=== PATIENT | female | born 1960 | race Caucasian/White ===

== ENCOUNTER 2023-09-27 22:35 | Inpatient (IN) | payer BC ==
[~2023-09-27 22:35] MED LIST: IV FLUID CONTINUATION 1,000 ML IV ONE
[2023-09-27] MEDS ORDERED: HEPARIN SOD,PORK IN 0.45% NACL 25,000 UNIT in 0.45% NACL 1 250ML.BAG IV SCH (23:00)
[2023-09-27] MEDS ORDERED: HEPARIN SODIUM 1,000 UN/ML (10ML VL) IV PRN (23:00)
[2023-09-27] MEDS ORDERED: NITROGLYCERIN-D5W PMX 50 MG in DEXTROSE/WATER 1 250ML.BAG IV ONE (23:01)
--- NOTE | 2023-09-27 23:06 | ED ---
General Adult HPI - General Chief complaint: Chest Pain Stated complaint: Chest pain Time Seen by Provider: 09/27/23 22:40 Source: patient, EMS Mode of arrival: EMS Limitations: no limitations - History of Present Illness Initial comments: Dictation was produced using [employer] dictation software. please excuse any grammatical, word or spelling errors. Chief Complaint: 62-year-old female transferred from [place] emergency department to our emergency department for ACS History of Present Illness: Patient is a 62-year-old female she presents to the emergency department via transfer from [facility] department for acute coronary syndrome. She initially presented to outside emergency department for 2-3 days of chest pressure. She states that it's a pressure-like sensation that radiates across her bilateral shoulders. She had EKG performed were ER physician there felt like her EKG did not meet STEMI criteria. She did have a troponin elevated at 1.5. She started on nitro glycerin given aspirin and heparin. States that her symptoms are significantly improved since being in our emergency department. Patient has any cardiac history. Denies any history of medical problems. She does smoke. The ROS documented in this emergency department record has been reviewed and confirmed by me. Those systems with pertinent positive or negative responses have been documented in the HPI. All other systems are other negative and/or noncontributory. - Related Data Allergies Allergy/AdvReac Type Severity Reaction Status Date / Time bee venom protein (honey bee) Allergy Anaphylaxis Verified 09/27/23 22:42 Review of Systems ROS Statement: Those systems with pertinent positive or pertinent negative responses have been documented in the HPI. ROS Other: All systems not noted in ROS Statement are negative. Past Medical History Past Medical History: No Reported History Past Surgical History: No Surgical Hx Reported Past Psychological History: Anxiety, Depression Smoking Status: Current every day smoker Past Alcohol Use History: None Reported Past Drug Use History: Marijuana General Exam - General Exam Comments Initial Comments: PHYSICAL EXAM: General Impression: Alert and oriented x3, not in acute distress HEENT: Normocephalic atraumatic, extra-ocular movements intact, pupils equal and reactive to light bilaterally, mucous membranes moist. Cardiovascular: Heart regular rate and rhythm Chest: Able to complete full sentences, no retractions, no tachypnea Abdomen: abdomen soft, non-tender, non-distended, no organomegaly Musculoskeletal: Pulses present and equal in all extremities, no peripheral edema Motor: no focal deficits noted Neurological: CN II-XII grossly intact, no focal motor or sensory deficits noted Skin: Intact with no visualized rashes Psych: Normal affect and mood Limitations: no limitations Course Vital Signs 09/27/23 09/27/23 09/27/23 22:37 23:00 23:15 Temperature 98.5 F Pulse Rate 54 L 60 66 Respiratory 18 20 20 Rate Blood Pressure 116/75 138/61 146/91 O2 Sat by Pulse 98 98 98 Oximetry 09/27/23 23:30 Temperature Pulse Rate 76 Respiratory 18 Rate Blood Pressure 138/87 O2 Sat by Pulse 96 Oximetry - Reevaluation(s) Reevaluation #1: 09/27/23 23:03 Immediately after EKG was reviewed by myself at 2255 PM there was concern for STEMI. EKGs performed here in emergency department or compared to EKGs performed at outside ER from 6:25 PM showing no dynamic changes however. Case was immediately discussed with cardiology Dr. Walter at 2256. He requested that he reviewed the EKG before any further recommendations are made. Reevaluation #2: 09/27/23 23:11 . I spoke with cardiology on-call Dr. Walter at 11:08 PM. He states that he reviewed the EKG and was suspicious. Discussed with cardiology that patient is not having active chest pain. He requested that code STEMI be paged. EKG Findings - EKG Comments: EKG Findings:: My EKG interpretation: Ventricular rate 57, sinus bradycardia,. 157, QRS 79, QTC 41. No IA prolongation, no QTC prolongation, ST elevations that are very subtle and leads 2, 3 aVF and lateral septal precordial leads with depressions in anterior precordial leads. EKG is concerning for active ischemia versus infarction Medical Decision Making - Medical Decision Making Was pt. sent in by a medical professional or institution (, PA, MICROBIOLOGY LAB TECHNICIAN, urgent care, hospital, or detention...) When possible be specific @ -Outside emergency department Did you speak to anyone other than the patient for history (EMS, parent, family, police, friend...)? What history was obtained from this source @ -EMS Did you review nursing and triage notes (agree or disagree)? Why? @ -I reviewed and agree with nursing and triage notes Were old charts reviewed (outside hosp., previous admission, EMS record, old EKG, old radiological studies, urgent care reports/EKG's, detention records)? Report findings @ -outside hosopital ER charts are reviewed as discussed Above Differential Diagnosis (chest pain, altered mental status, abdominal pain women, abdominal pain men, vaginal bleeding, musculoskeletal, weakness, fever, dyspnea, syncope, headache, dizziness, GI bleed, back pain, seizure, CVA, palpatations, mental health)? @ -Differential Chest Pain: Stable Angina, Unstable Angina, STEMI, NSTEMI Aortic Dissection, Pneumothorax, Musculoskeletal, Esophageal Spasm GERD, Cholecystitis, Pancreatitis, Zoster, this is not meant to be an all-inclusive list. EKG interpreted by me (3pts min.). @ -See above X-rays interpreted by me (1pt min.). @ -None done CT interpreted by me (1pt min.). @ -None done U/S interpreted by me (1pt. min.). @ -None done What testing was considered but not performed or refused? (CT, X-rays, U/S, labs)? Why? @ -None What meds were considered but not given or refused? Why? @ -None Did you discuss the management of the patient with other professionals (professionals i.e. , PA, MICROBIOLOGY LAB TECHNICIAN, lab, RT, psych nurse, social professionals, mine safety director, teacher, probation and parole officer, bilingual case manager)? Give summary @ -See above Was smoking cessation discussed for >3mins.? @ -No Was critical care preformed (if so, how long)? @ -33 minutes Were there social determinants of health that impacted care today? How? (Homelessness, low income, unemployed, alcoholism, drug addiction, transportation, low edu. Level, literacy, decrease access to med. care, [facility], rehab)? @ -No Was there de-escalation of care discussed even if they declined (Discuss DNR or withdrawal of care, Hospice)? DNR status @ -No What co-morbidities impacted this encounter? (DM, HTN, Smoking, COPD, CAD, Cancer, CVA, ARF, Chemo, Hep., AIDS, mental health diagnosis, sleep apnea, morbid obesity)? @ -None Was patient admitted / discharged? Hospital course, mention meds given and route, prescriptions, significant lab abnormalities, going to OR and other pertinent info. @ -62-year-old female presents to the emergency department for chest pain. She was seen and evaluated initially at outside emergency Department. EKG was performed here showing EKG findings concerning for STEMI. Case is discussed with cardiology. Code STEMI page. Patient disposition to analytical laboratory technician Undiagnosed new problem with uncertain prognosis? @ -No Drug Therapy requiring intensive monitoring for toxicity (Heparin, Nitro, Insulin, Cardizem)? @ -No Were any procedures done? @ -No Diagnosis/symptom? Acute, or Chronic, or Acute on Chronic? Uncomplicated (without systemic symptoms) or Complicated (systemic symptoms)? @ -STEMI Side effects of treatment? @ -No Exacerbation, Progression, or Severe Exacerbation? @ -No Poses a threat to life or bodily function? How? (Chest pain, [place], [place], pneumonia, PE, COPD, DKA, ARF, appy, cholecystitis, CVA, Diverticulitis, Homicidal, Suicidal, threat to staff... and all critical care pts) @ -yes Disposition Clinical Impression: STEMI (ST elevation myocardial infarction) Disposition: ADMITTED IP TO THIS HOSP Condition: Critical Referrals: None,Stated [Primary Care Provider] - 1-2 days Decision Time: 23:41
[2023-09-27] MEDS ORDERED: NALOXONE 0.4 MG/ML 1 ML VIAL IV PRN (23:37)
[2023-09-27] MEDS ORDERED: LIDOCAINE 1% INJ 10MG/ML (20 ML MDV) ONE (23:44)
[2023-09-27] MEDS ORDERED: VERAPAMIL 2.5 MG/ML 2 ML AMP ONE (23:44)
[2023-09-27 23:46] LABS: Basophils # (A) 0.1 k/uL (0-0.2); Basophils % (A) 1 %; Eosinophils # (A) 0.2 k/uL (0-0.7); Eosinophils % (A) 1 %; HCT 49.2 % (34.0-46.0); HGB 16.7 gm/dL (11.4-16.0); Lymphocytes # (A) 3.9 k/uL (1.0-4.8); Lymphocytes % (A) 26 %; MCH 31.5 pg (25.0-35.0); MCV 92.9 fL (80.0-100.0); Mean Platelet Volume 9.7; Monocytes # (A) 0.7 k/uL (0-1.0); Monocytes % (A) 4 %; Neutrophils # (A) 10.3 k/uL (1.3-7.7); Neutrophils % (A) 67 %; Platelet Count 283 k/uL (150-450); RDW 13.1 % (11.5-15.5); WBC 15.4 k/uL (3.8-10.6)
--- NOTE | 2023-09-27 23:49 | P.CRDCN ---
History of Present Illness Consult date: 09/27/23 History of present illness: HISTORY OF PRESENTING ILLNESS 62-year-old female with no significant past medical history. She does not take any medications previously. She has not seen any physicians in recent past. She is a smoker and smokes 15 cigarettes every day. She also smokes marijuana. Reports occasional alcohol use. She also reports strong family history of coronary artery disease with father having MT in 60s. Patient has been having on and off substernal chest heaviness and reduction in excess capacity for last 3-4 days. This morning patient woke up not feeling very good and she has been having substernal chest heaviness throughout the monitoring which was on and off but it got significantly worse by the evening due to which she went to [facility] at 6 PM. Her ECG at that time showed some ST changes which are diagnostic for ischemia. She also had mild elevation of troponin approximately measuring at 1.4. Cardiology was notified at 11:20 PM, that patient has been transferred from [facility] to [facility] ER. At this time patient is on IV heparin drip and nitro drip. She has been complaining of 4 out of 10 chest heaviness even be 1 on nitro drip but she is hemodynamically stable. An EKG was performed which showed sinus rhythm with [address] elevation in lead 2 and 3 aVF V5 V6. There is also Q waves seen in 2, 3 and aVF. There are also prominent R waves in lead V1 suggestive of posterior MT. Overall ECG interpretation is in line with late presenting inferior MT with posterolateral extension. Bedside echocardiogram was performed which showed inferior, inferolateral hy pokinesia with an EF of 35-40%. There was no obvious mitral regurgitation on color Doppler. There was no pericardial effusion, some epicardial fat. REVIEW OF SYSTEMS 14 point review of system is negative except what is mentioned above in HPI. PHYSICAL EXAMINATION Vital signs reviewed. Head: Normocephalic. Eyes: Sclerae nonicteric. Neck: Brisk carotid upstroke, no jugular venous distention. Lungs: Clear to auscultation. Heart: Regular rate and rhythm, S1-S2, no S3, no murmur or rub. Abdomen: Soft nontender, positive bowel sounds no organomegaly. Extremities: No edema, intact distal pulses. Neuro: Alert, oritented, no focal deficits ASSESSMENT Late presenting inferior MT ACS with ongoing active chest pains while on IV nitro drip Tobacco smoker quadrant pack per day Marijuana smoker Family h/o of CAD PLAN Plan for cardiac catheterization. The procedure steps the risks and benefits were extended the patient patient agrees to proceed with cardiac catheterization. Obtain echocardiogram Check lipid panel, HbA1c Past Medical History Past Medical History: No Reported History Past Surgical History: No Surgical Hx Reported Past Psychological History: Anxiety, Depression Smoking Status: Current every day smoker Past Alcohol Use History: None Reported Past Drug Use History: Marijuana Medications and Allergies Allergies Allergy/AdvReac Type Severity Reaction Status Date / Time bee venom protein (honey bee) Allergy Anaphylaxis Verified 09/27/23 22:42 Physical Exam Vitals: Vital Signs Temp Pulse Resp BP Pulse Ox 09/27/23 23:40 69 18 143/95 96 09/27/23 23:30 76 18 138/87 96 09/27/23 23:15 66 20 146/91 98 09/27/23 23:00 60 20 138/61 98 09/27/23 22:37 98.5 F 54 L 18 116/75 98 Intake and Output 09/27/23 09/27/23 09/28/23 14:59 22:59 06:59 Other: Weight 95.254 kg Results Current Medications Generic Name Dose Route Start Last Admin Trade Name Freq PRN Reason Stop Dose Admin Heparin Sodium (Porcine) 0 unit 09/27/23 23:00 Heparin Sodium 1,000 Un/Ml (10ml Vl) IV PER PROTOCOL PRN Low PTT Protocol Heparin Sodium/Sodium Chloride 250 mls @ 10.002 mls/hr 09/27/23 23:00 09/27/23 23:10 25,000 unit/ Sodium Chloride IV 10.5 units/kg/hr .Q24H ANISH 10.002 mls/hr Administration Protocol 10.5 UNITS/KG/HR Nitroglycerin/Dextrose 50 mg/ 250 mls @ 1.5 mls/hr 09/27/23 23:01 09/27/23 23:13 IV Solution IV 09/28/23 23:00 5 mcg/min .Q24H ONE 1.5 mls/hr Administration Protocol 5 MCG/MIN Naloxone HCl 0.2 mg 09/27/23 23:37 Naloxone 0.4 Mg/Ml 1 Ml Vial IV Q2M PRN Opioid Reversal Intake and Output 09/27/23 09/27/23 09/28/23 14:59 22:59 06:59 Other: Weight 95.254 kg Patient Weight 09/28/23 06:59 Weight 95.254 kg
[2023-09-27] MEDS ORDERED: fentaNYL (PF) 50 MCG/ML 2 ML AMP ONE (23:54)
[2023-09-27] MEDS ORDERED: LIDOCAINE 1% INJ 10MG/ML (20 ML MDV) SQ ONE (23:57)
[2023-09-28] LABS: ALT 37 U/L (4-34); African American GFR (CKD) >90 (>60 ml/min/1.73 sqM); Anion Gap 9 mmol/L; Blood Urea Nitrogen 12 mg/dL (7-17); Calcium 9.4 mg/dL (8.4-10.2); Carbon Dioxide 21 mmol/L (22-30); Chloride 107 mmol/L (98-107); Glucose 113 mg/dL (74-99); Non-African American GFR(CKD) 84 (>60 ml/min/1.73 sqM); Sodium 137 mmol/L (137-145); Total Bilirubin 0.9 mg/dL (0.2-1.3)
[2023-09-28] MEDS ORDERED: VERAPAMIL SYRINGE (5 MG/10 ML) INTRAARTER ONE (00:01)
[2023-09-28] MEDS ORDERED: MIDAZOLAM 2 MG/2 ML VIAL IVP ONE (00:02)
[2023-09-28] MEDS ORDERED: fentaNYL (PF) 50 MCG/1 ML VIAL IVP ONE (00:02)
[2023-09-28 00:06] LABS: AST 116 U/L (14-36); Albumin 4.2 g/dL (3.5-5.0); Alkaline Phosphatase 102 U/L (38-126); Potassium 4.9 mmol/L (3.5-5.1)
[2023-09-28] MEDS: HEPARIN SODIUM 1,000 UN/ML (10ML VL) IV ONE ×2 (00:06→01:08)
[2023-09-28 00:07] LABS: Partial Thromboplastin Time 68.2 sec (22.0-30.0); Prothrombin Time 10.7 sec (10.0-12.5)
[2023-09-28] MEDS ORDERED: PRASUGREL 10 MG TAB PO ONE (00:25)
[2023-09-28] MEDS ORDERED: IOPAMIDOL-370 100ML BTL INJ ONE ×2 (00:29→01:08)
--- NOTE | 2023-09-28 00:30 | P.CARDCATH ---
Date of Procedure: 09/28/23 Description of Procedure: DIAGNOSTIC CORONARY ANGIOGRAPHY and LEFT HEART CATH REPORT PROCEDURES PERFORMED: Left heart catheterization Selective coronary angiography Moderate conscious sedation and mins Right radial access INDICATION: Late presenting inferoposterior PR 62-year-old female presented to [facility] at 6 PM with substernal chest pain at that time showed elevated troponin. Due to ongoing chest and she was transferred to [facility]. Her ECG showed Q waves in inferior leads and evolving ST changes with [address] elevations in II III aVF and V5 V6 with prominent R wave in V1 suggestive of posterior extension of PR. The time of evaluation patient was an IV nitro drip complaining of 4/10 chest pressure. But her echocardiogram showed mid to distal anterolateral, whole inferolateral and inferior wall hypokinesia. EF 40% CONSENT: I have discussed the risks, benefits and alternative therapies for the above-mentioned procedure, sedation/analgesia and necessary blood product administration (if indicated, as they pertain to this patient). The patient has indicated understanding and acceptance of the risks and procedures discussed. Conscious Sedation: Patient's ECG, heart rate, blood pressure, pulse oximetry was monitored throughout the duration of procedure under my direct supervision. 1 mg Versed and 25 mg Fentanyl were used for induction of moderate conscious sedation. Total duration of moderate concious sedation 10 minutes. Start time 2357. End time 0007. PROCEDURE: After explaining the risks, benefits and alternatives of the above mentioned procedures in detail to the patient, informed consent was obtained. Patient was taken to the catheterization lab, prepped and draped in usual sterile fashion using universal precuations. Barbow and lior test were performed to confirm adequate perfusion to fingers. Ultrasound was used to identify the radial artery. 1% lidocaine was infiltrated over the right radial artery. A 6-Sami sheath was placed and secured in the right radial artery using modified Seldinger technique. The sheath was flushed and 5 mg verapamil was administered intra-arterially. J tipped wire was advanced under fluoroscopic guidance. Once the wire tip reached aortic root [5000] units of IV heparin was given. Over the wire JL4 diagnostic catheter was advanced. Wire was removed, catheter was flushed and manipulated under fluoroscopy to selectively engaged the left coronary ostium. Left coronary angioplasty was performed in different angiographic projections. This catheter was exchanged for a JR4 diagnostic catheter over the wire. Catheter was manipulated to selectively engage the right coronary ostium under fluoroscopic guidance. Right coronary angiography was performed in different angiographic projections. Catheter was removed over the wire. Radial sheath was flushed. The right radial sheath was removed and a TR band was placed with excellent patent hemostasis was achieved. The patient tolerated the procedure well. Patient was transported back to the post catheterization holding area in stable condition. Angiographic images were reviewed in detail. HEMODYNAMICS: Aortic Pressure: 142/77 mmHg. SELECTIVE CORONARY ARTERIOGRAPHY: LEFT MAIN: The left main is a large caliber vessel which bifurcates into the LAD and circumflex. Left main appears angiographically normal. LEFT ANTERIOR DESCENDING CORONARY ARTERY: LAD is a large caliber vessel. Proximal LAD has 10-20% calcific luminal irregularities. Mid LAD has 30-40% calcific luminal irregularities. Mid LAD gives medium-sized diagonal 2 branch approximately 3 mm vessel. It has 30-40% diffuse disease in the proximal segment. Distal midportion of LAD has 60-70% calcific disease. Distal LAD is a small segment of myocardial bridge. and otherwise appears angiographically normal. LEFT CIRCUMFLEX CORONARY ARTERY: It is nondominant vessel. LCx is a large OM1 branch approximately 4 mm vessel. It has 100% thrombotic occlusion in mid segment with BENSON 0 flow. LCx continues to form a small AV groove vessel which is normal angiographically. RIGHT CORONARY ARTERY: Dominant vessel. The right coronary artery is a large caliber vessel. Proximal RCA has 90-95% percent calcific stenosis with BENSON-3 flow. Mid to distal RCA 30% diffuse luminal irregularities IMPRESSION: 100% thrombotic occlusion of mid OM1 , BENSON 0 flow, culprit vessel based of bedside echo and ECG 90-95% Proximal RCA, BENSON 3 Flow 60-70% distal Mid LAD Mild diffuse disease otherwise PLAN: Plan for PCI to OM Staged PCI of RCA and FFR/IFR assessment of LAD. Thank you for letting [facility] cardiology team to get involved in this patient's care. Please feel free to contact our office in case of any specific questions. Performing Physician Des Walter MD
--- NOTE | 2023-09-28 00:39 | XR ---
EXAM: XR Chest, 1 View CLINICAL HISTORY: ITS.REASON XR Reason: stemi TECHNIQUE: Frontal view of the chest. COMPARISON: No relevant prior studies available. FINDINGS: Lungs: Unremarkable. No consolidation. Pleural space: Unremarkable. No pneumothorax. Heart: Cardiomegaly. Mediastinum: Unremarkable. Normal mediastinal contour. Bones/joints: Unremarkable. No acute fracture. Vasculature: Calcified aorta. IMPRESSION: No acute findings in the chest.
[2023-09-28] MEDS ORDERED: ZOLPIDEM 5 MG TAB PO PRN (00:51)
[2023-09-28] MEDS ORDERED: ATROPINE SULFATE 0.1 MG/ML 10ML SYRINGE IV PRN (00:51)
[2023-09-28] MEDS ORDERED: MAG HYDROX/AL HYDROX/SIMETH 30 ML CUP PO PRN (00:51)
[2023-09-28] MEDS ORDERED: RX INFO: IV CONTRAST WAS GIVEN 1 EACH MISC MISCELLANE PRN (00:51)
[2023-09-28] MEDS ORDERED: NITROGLYCERIN SL TABS 0.4 MG TAB SUBLINGUAL PRN (00:51)
--- NOTE | 2023-09-28 00:56 | P.PCN ---
Date of Procedure: 09/28/23 Operative Findings: PERCUTANEOUS CORONARY INTERVENTION Performing physician Jack Rogers M.D. Procedure Performed: 1. Successful stenting of the OM1 of the LCx using the 0.5 x 23 mm Xience drug- eluting stent with an excellent angiographic results. 2. Adjunctive use of intravascular imaging and aspiration thrombectomy Indication: Acute coronary syndrome Approach: Right radial artery Complications: None Level of Sedation: Moderate with a sedation length of 30 minutes Procedure Discussion: After obtaining an informed consent the patient was brought to the cardiac lab asst. Please refer to diagnosed sick heart catheterization was performed by Dr. Walter. Anticoagulation was initiated using heparin with continuous ACT monitoring. Subsequently I did engage the left main using a CLS 3 guiding catheter. I did wire the first obtuse marginal branch using a run-through wire. Subsequently balloon angioplasty was performed using 3 mm balloon but I could not restore the flow. I did intravascular ultrasound and that showed soft plaque with possible thrombus. Aspiration thrombectomy was performed using the export catheter with the extraction of small red thrombus. Subsequently I did balloon angioplasty again using 3 mm balloon with prolonged inflation and I was able to restore the flow in the OM. Then I did stenting the OM using 3.5 x 23 mm stent which was postdilated using 4 mm noncompliant balloon after intravas cular imaging performed and showed that the mid segment of the stent was not well expanded. Final angiogram was performed and showed good angiographic results was BENSON-3 flow and the procedure was completed was no complication Postprocedure Management: 1. Dual antiplatelet therapy using aspirin and Effient for 12 month 2. Aggressive cholesterol control 3. Is cracked his modification
[2023-09-28] MEDS ORDERED: SODIUM CHLORIDE 0.9% 1,000 ML in EMPTY BAG 1 BAG IV SCH (01:00)
[2023-09-28 01:05] LABS: Glucose,Whole Blood 114 mg/dL (70-110)
[2023-09-28] MEDS ORDERED: ONDANSETRON 4 MG/2 ML VIAL IVP ONE (01:08)
--- NOTE | 2023-09-28 02:05 | P.HPIM ---
History of Present Illness H&P Date: 09/28/23 Patient is a 62-year-old female with a PMH of tobacco abuse and obesity who had initially presented to [facility] with complaints of chest discomfort. Patient reports she has been experiencing intermittent chest tightness for the past 2-3 days, pressure-like in nature, with radiation to bilateral shoulders. Reports the pain became persistent earlier today which prompted her to go to the emergency room. At [facility], the patient's troponin was elevated at 1.50 with a somewhat abnormal EKG. The patient was started on heparin infusion and was transferred for cardiology evaluation. Upon arrival at the emergency room, EKG revealed findings consistent with ST elevation PR for which a code STEMI was activated. Patient was taken to the Ground Products Director where she underwent stenting of the OM1. Patient was also noted to have 60-70% consultation disease of the distal LAD as well as 90- 95% of the proximal RCA. The patient was seen postoperatively in the medical ICU. She reported that her chest pain had resolved completely. She denied any additional complaints. Denied experiencing cough, fever, sore throat, nausea, vomiting. Laboratory evaluation at our facility revealed leukocytosis of 15.4, hemoglobin 16.7, troponin I 9.330, glucose 113, AST 116, and ALT 37. EKG had revealed sinus bradycardia with ST elevations in inferior leads and poor R-wave progre ssion 57 bpm as reviewed by me. ED documentation reviewed and case discussed with ED provider. [] Review of systems: Pertinent positives and negatives as discussed in HPI, a complete review of systems was performed and all other systems are negative. Physical examination: Vital signs reviewed General: non toxic, no distress, appears at stated age, obese Derm: no unusual rashes/lesions, warm Head: atraumatic, normocephalic, symmetric Eyes: EOMI, no lid lag, anicteric sclera, pupils equal round reactive to light ENT: Nose and ears atraumatic Neck: No cervical lymphadenopathy, trachea midline, supple Mouth: no lip lesion, mucus membranes moist Cardiovascular: S1S2 reg, no murmur, positive dorsalis pedis pulse bilateral, no edema Lungs: CTA bilateral, no rhonchi, no rales, no accessory muscle use Abdominal: soft, nontender to palpation, no guarding Ext: muscle strength 5 out of 5 in all 4 extremities grossly, no gross muscle atrophy, no contractures, Neuro: CN II-XI grossly intact, no gross focal neuro deficits Psych: Alert, oriented, appropriate affect Assessment: ST elevation PR status post stenting of OM1 Leukocytosis, suspect secondary to acute stressor with no signs of active infection at this time Transaminitis, unclear etiology Imaging: EKG had revealed sinus bradycardia with ST elevations in inferior leads and poor R-wave progression 57 bpm as reviewed by me. Data Review: Laboratory evaluation at our facility revealed leukocytosis of 15.4, hemoglobin 16.7, troponin I 9.330, glucose 113, AST 116, and ALT 37. Plan: Cardiology recommendations appreciated Continue patient on aspirin and Effient with Lipitor Cardiac monitoring Follow up echocardiogram Follow-up lipid panel and A1c If transaminitis persistent, consider RUQ ultrasound DVT prophylaxis: Lovenox Subq The patient is admitted with an anticipated greater than 2 midnight stay for evaluation of STEMI CODE STATUS: Full Code Discussed with: Patient Anticipated discharge place: Home Past Medical History Past Medical History: No Reported History History of Any Multi-Drug Resistant Organisms: None Reported Past Surgical History: No Surgical Hx Reported Additional Past Surgical History / Comment(s): Right thumb bone spur sx 2008 Past Anesthesia/Blood Transfusion Reactions: No Reported Reaction Past Psychological History: Anxiety, Depression Smoking Status: Current every day smoker Past Alcohol Use History: None Reported Past Drug Use History: Marijuana - Past Family History Father Family Medical History: Cancer Additional Family Medical History / Comment(s): Squamous cell CA Mother Family Medical History: Coronary Artery Disease (CAD) Additional Family Medical History / Comment(s): 4 vessel CABG Medications and Allergies Allergies Allergy/AdvReac Type Severity Reaction Status Date / Time bee venom protein (honey bee) Allergy Anaphylaxis Verified 09/27/23 22:42 Physical Exam Vitals: Vital Signs Temp Pulse Pulse Resp BP BP Pulse Ox 09/28/23 01:17 97.8 F 70 12 113/59 98 09/27/23 23:40 69 18 143/95 96 09/27/23 23:30 76 18 138/87 96 09/27/23 23:15 66 20 146/91 98 09/27/23 23:00 60 20 138/61 98 09/27/23 22:37 98.5 F 54 L 18 116/75 98 Intake and Output 09/27/23 09/27/23 09/28/23 14:59 22:59 06:59 Other: Weight 95.254 kg 95.254 kg Results CBC & Chem 7: 09/28/23 02:12 09/27/23 23:32 Labs: Abnormal Lab Results - Last 24 Hours (Table) 09/27/23 09/27/23 09/27/23 Range/Units 23:32 23:32 23:32 WBC 15.4 H (3.8-10.6) k/uL Hgb 16.7 H (11.4-16.0) gm/dL Hct 49.2 H (34.0-46.0) % Neutrophils # 10.3 H (1.3-7.7) k/uL APTT 68.2 H (22.0-30.0) sec Carbon Dioxide 21 L (22-30) mmol/L Glucose 113 H (74-99) mg/dL POC Glucose (mg/dL) (70-110) mg/dL AST 116 H (14-36) U/L ALT 37 H (4-34) U/L Troponin I (0.000-0.034) ng/mL 09/27/23 09/28/23 Range/Units 23:32 01:03 WBC (3.8-10.6) k/uL Hgb (11.4-16.0) gm/dL Hct (34.0-46.0) % Neutrophils # (1.3-7.7) k/uL APTT (22.0-30.0) sec Carbon Dioxide (22-30) mmol/L Glucose (74-99) mg/dL POC Glucose (mg/dL) 114 H (70-110) mg/dL AST (14-36) U/L ALT (4-34) U/L Troponin I 9.330 H* (0.000-0.034) ng/mL Thrombosis Risk Factor Assmnt - Choose All That Apply Any of the Below Risk Factors Present?: Yes Each Factor Represents 1 point: Acute PR, Age 41-60 years, Minor surgery planned Other Risk Factors: No Other congenital or acquired thrombophilia - If yes, enter type in comment: No Thrombosis Risk Factor Assessment Total Risk Factor Score: 3 Thrombosis Risk Factor Assessment Level: Moderate Risk
[2023-09-28 03:19] LABS: Basophils # (A) 0.1 k/uL (0-0.2); Basophils % (A) 1 %; Eosinophils # (A) 0.1 k/uL (0-0.7); Eosinophils % (A) 1 %; HCT 48.6 % (34.0-46.0); HGB 16.4 gm/dL (11.4-16.0); Lymphocytes % (A) 21 %; MCH 31.6 pg (25.0-35.0); MCHC 33.8 g/dL (31.0-37.0); MCV 93.5 fL (80.0-100.0); Mean Platelet Volume 9.4; Monocytes # (A) 0.7 k/uL (0-1.0); Monocytes % (A) 5 %; Neutrophils # (A) 10.4 k/uL (1.3-7.7); Neutrophils % (A) 72 %; Platelet Count 280 k/uL (150-450); RBC 5.19 m/uL (3.80-5.40); RDW 13.5 % (11.5-15.5); WBC 14.4 k/uL (3.8-10.6)
[2023-09-28] MEDS: METOPROLOL TARTRATE 25 MG TAB PO SCH ×2 (08:31→20:17)
[2023-09-28] MEDS: ASPIRIN 81 MG PO SCH (08:31)
[2023-09-28] MEDS: ENOXAPARIN 40 MG/0.4 ML SYRINGE SQ SCH (08:31)
[2023-09-28] MEDS ORDERED: ALPRAZolam 0.25 MG TAB PO PRN (10:15)
[2023-09-28] MEDS ORDERED: ALPRAZolam 0.5 MG TAB PO PRN (10:15)
[2023-09-28 11:18] VITALS: BMI 33.9
[2023-09-28 11:27] LABS: Chol/HDL Ratio 6.29 Ratio; LDL Cholesterol,Calculated 185.2 mg/dL (0.0-131.0)
--- NOTE | 2023-09-28 12:07 | CA ---
Transthoracic Echo Report Name: Pretty Andujar Age: 62 Gender: F : 1960 Exam Date: 09/28/2023 08:10 Exam Location: [facility] Ht (in): 66 Wt (lb): 210 Ordering Physician: Des Walter MD ([email or web address]) Attending/Referring Phys: Grease Maker Head Duyen Yanez RDCS Procedure CPT: Indications: stemi Cardiac Hx: Technical Quality: Technically difficult study Contrast 1: Definity Total Dose (mL): 2 Contrast 2: Total Dose (mL): MEASUREMENTS (Male / Female) Normal Values 2D ECHO LV Diastolic Diameter PLAX 3.8 cm 4.2 - 5.9 / 3.9 - 5.3 cm LV Systolic Diameter PLAX 2.2 cm IVS Diastolic Thickness 1.4 cm 0.6 - 1.0 / 0.6 - 0.9 cm LVPW Diastolic Thickness 1.4 cm 0.6 - 1.0 / 0.6 - 0.9 cm LV Relative Wall Thickness 0.7 RV Internal Dim ED PLAX 3.5 cm LA Volume 53.0 cm??? 18 - 58 / 22 - 52 cm??? LA Volume Index 24.7 cm???/m??? 16 - 28 cm???/m??? M-MODE Aortic Root Diameter MM 3.0 cm LA Systolic Diameter MM 3.9 cm LA Ao Ratio MM 1.3 AV Cusp Separation MM 2.0 cm DOPPLER AV Peak Velocity 171.1 cm/s AV Peak Gradient 11.7 mmHg AV Mean Velocity 130.7 cm/s AV Mean Gradient 7.4 mmHg AV Velocity Time Integral 35.8 cm LVOT Peak Velocity 115.8 cm/s LVOT Peak Gradient 5.4 mmHg LVOT Velocity Time Integral 26.3 cm MV Area PHT 2.7 cm??? Mitral E Point Velocity 53.1 cm/s Mitral A Point Velocity 80.8 cm/s Mitral E to A Ratio 0.7 MV Deceleration Time 282.3 ms MV E' Velocity 6.7 cm/s Mitral E to MV E' Ratio 7.9 TR Peak Velocity 200.6 cm/s TR Peak Gradient 16.1 mmHg Right Ventricular Systolic Press 21.1 mmHg FINDINGS Left Ventricle Moderately increased left ventricular wall thickness. Left ventricular cavity size normal. Lateral wall hypokinesis. Left ventricular ejection fraction is estimated at 50-55 %. Right Ventricle Mild right ventricular dilatation. Right ventricular systolic pressure within normal limits. Right Atrium Normal right atrial size. Left Atrium Mildly increased left atrial volume. Mitral Valve Structurally normal mitral valve. Mild mitral regurgitation. Aortic Valve Trileaflet aortic valve. No aortic valve stenosis or regurgitation. Tricuspid Valve Structurally normal tricuspid valve. Mild tricuspid regurgitation. Pulmonic Valve Structurally normal pulmonic valve. Pericardium No pericardial effusion.echo free space anterior to the right ventricle likely represents a fat pad. Aorta Normal size aortic root and proximal ascending aorta. CONCLUSIONS 1. Normal left ventricle size with borderline normal left ventricle systolic function with lateral wall hypokinesis 2. Mild mitral and tricuspid regurgitation Previewed by: Dr. Kameron Mims MD (Electronically Signed) Final Date: 28 September 2023 12:05
[2023-09-28] MEDS: ATORVASTATIN 80 MG TAB PO SCH (20:16)
--- NOTE | 2023-09-29 01:14 | PN ---
PROGRESS NOTE SUBJECTIVE: Mrs. Andujar presents with acute ST-elevation MS, last night underwent stenting of circumflex. She still has a significant lesion in the RCA. She is hemodynamically stable, doing well. At the time of my evaluation, she is not in any distress, has been tolerating her medications well. Right radial site is clean and dry. OBJECTIVE: VITALS: Stable. HEART: S1, S2 heard normally. LUNGS: Clear. ABDOMEN: Unremarkable. EXTREMITIES: Lower extremities unremarkable. I am recommending that she can proceed with her right coronary intervention tomorrow. Dr. Rogers will perform the procedure. The patient is fully aware of risks, benefits, options, rationale and wishes to proceed with the procedure. MMODL / IJN: [id number] /
[2023-09-29] MEDS ORDERED: SODIUM CHLORIDE 0.9% 1,000 ML in EMPTY BAG 1 BAG IV SCH ×2 (03:00→10:45)
[2023-09-29 05:21] LABS: Basophils # (A) 0.1 k/uL (0-0.2); Basophils % (A) 1 %; Eosinophils # (A) 0.3 k/uL (0-0.7); Eosinophils % (A) 2 %; HCT 45.7 % (34.0-46.0); HGB 15.9 gm/dL (11.4-16.0); Lymphocytes # (A) 3.9 k/uL (1.0-4.8); Lymphocytes % (A) 35 %; MCH 31.9 pg (25.0-35.0); MCHC 34.8 g/dL (31.0-37.0); MCV 91.9 fL (80.0-100.0); Mean Platelet Volume 9.6; Monocytes # (A) 0.6 k/uL (0-1.0); Monocytes % (A) 5 %; Neutrophils # (A) 6.1 k/uL (1.3-7.7); Neutrophils % (A) 55 %; Platelet Count 261 k/uL (150-450); RBC 4.97 m/uL (3.80-5.40); RDW 13.5 % (11.5-15.5); WBC 11.2 k/uL (3.8-10.6)
[2023-09-29 05:34] LABS: African American GFR (CKD) 78 (>60 ml/min/1.73 sqM); Anion Gap 8 mmol/L; Blood Urea Nitrogen 16 mg/dL (7-17); Calcium 9.2 mg/dL (8.4-10.2); Carbon Dioxide 22 mmol/L (22-30); Chloride 108 mmol/L (98-107); Glucose 101 mg/dL (74-99); Non-African American GFR(CKD) 68 (>60 ml/min/1.73 sqM); Potassium 4.3 mmol/L (3.5-5.1); Sodium 138 mmol/L (137-145)
[2023-09-29] MEDS ORDERED: ASPIRIN 325 MG TAB PO ONE (06:00)
[2023-09-29] MEDS ORDERED: HEPARIN SODIUM,PORCINE (1 ML) 2,500 UNIT in SODIUM CHLORIDE 0.9% 250 ML IRRIGATION PRN (07:00)
[2023-09-29] MEDS ORDERED: HEPARIN SODIUM,PORCINE 10,000 UNIT in SODIUM CHLORIDE 0.9% 1,000 ML IRRIGATION PRN (07:00)
[2023-09-29] MEDS: ASPIRIN 81 MG PO SCH (07:23)
[2023-09-29] MEDS ORDERED: PRASUGREL 10 MG TAB PO SCH (09:00)
[2023-09-29] MEDS: ENOXAPARIN 40 MG/0.4 ML SYRINGE SQ SCH (09:14)
[2023-09-29] MEDS: METOPROLOL TARTRATE 25 MG TAB PO SCH ×2 (09:15→20:03)
[2023-09-29] MEDS ORDERED: VERAPAMIL 2.5 MG/ML 2 ML AMP ONE (09:47)
[2023-09-29] MEDS ORDERED: LIDOCAINE 1% INJ 10MG/ML (20 ML MDV) ONE (09:47)
[2023-09-29] MEDS ORDERED: HEPARIN SODIUM 1,000 UN/ML (10ML VL) ONE (09:47)
[2023-09-29] MEDS ORDERED: IV FLUID CONTINUATION 1,000 ML IV ONE (09:55)
[2023-09-29] MEDS ORDERED: MIDAZOLAM 2 MG/2 ML VIAL IVP ONE (09:56)
[2023-09-29] MEDS ORDERED: LIDOCAINE 1% INJ 10MG/ML (20 ML MDV) SQ ONE (09:58)
[2023-09-29] MEDS ORDERED: VERAPAMIL SYRINGE (5 MG/10 ML) INTRAARTER ONE (09:59)
[2023-09-29] MEDS ORDERED: HEPARIN SODIUM 1,000 UN/ML (10ML VL) IV ONE (10:07)
[2023-09-29] MEDS ORDERED: PRASUGREL 10 MG TAB ONE ×2 (10:25)
[2023-09-29] MEDS ORDERED: PRASUGREL 10 MG TAB PO ONE (10:27)
[2023-09-29] MEDS ORDERED: IOPAMIDOL-370 100ML BTL INJ ONE (10:31)
[2023-09-29] MEDS ORDERED: ZOLPIDEM 5 MG TAB PO PRN (10:33)
[2023-09-29] MEDS ORDERED: NITROGLYCERIN SL TABS 0.4 MG TAB SUBLINGUAL PRN (10:33)
[2023-09-29] MEDS ORDERED: RX INFO: IV CONTRAST WAS GIVEN 1 EACH MISC MISCELLANE PRN (10:33)
[2023-09-29] MEDS ORDERED: MAG HYDROX/AL HYDROX/SIMETH 30 ML CUP PO PRN (10:33)
[2023-09-29] MEDS ORDERED: ATROPINE SULFATE 0.1 MG/ML 10ML SYRINGE IV PRN (10:33)
--- NOTE | 2023-09-29 10:41 | P.PCN ---
Date of Procedure: 09/29/23 Operative Findings: PERCUTANEOUS CORONARY INTERVENTION Performing physician Jack Roegrs M.D. Procedure Performed: 1. Successful stenting of the proximal RCA using 4.5 x 15 mm Xience drug- eluting stent with an excellent angiographic results. 2. Adjunctive use of intravascular imaging 3. Ultrasound guided access of the right radial artery Indication: This is a 62-year-old female patient who presented to the hospital 2 days ago with acute coronary syndrome and underwent a heart catheterization where she was found to have occluded left circumflex and type lesion involving the RCA beach she underwent stenting of the left circumflex and she was brought today to undergo PCI of the RCA Approach: Right radial artery Complications: None Level of Sedation: Moderate with a sedation length of 34 minutes Procedure Discussion: After obtaining an informed consent the patient was brought to the cardiac laborer shipyard. The right radial artery was cannulated using puncture technique under ultrasound guidance a micropuncture wire passed easily then I placed a 6-Swedish sheath at the right radial artery. I gave the patient 2 mg of verapamil intra- arterial. Subsequently anticoagulation was initiated using heparin with continuous ACT monitoring. Then I did engage the RCA using JR4 guiding catheter. Selective right coronary angiogram was performed and showed critical lesion involving the proximal RCA. I did wire the RCA using a run-through wire. After that the mask ultrasound was performed and showed calcified lesion with a diameter around 4.5 mm. After that I did predilatation using 3.5 mm balloon before I deployed a 4.5 x 15 mm stent where the stent was positioned under fluoroscopy guidance and deployed under fluoroscopy guidance. Attempting doing intravascular ultrasound again was only possible to advance the catheter to the midportion of the stent but not the distal portion of the stent. I did postdilated dictation of the stent using 5 mm noncompliant balloon. Attempting advancing the balloon to the stented segment was unsuccessful over the run- through wire but I was able to advanced using guide liner. With that I did balloon angioplasty with a 5 mm noncompliant balloon which was inflated under 12 kerline. After that I was able to advance the IVUS catheter to the stented segment and I did pullback manually and that showed that the stent appeared to be well opposed. No edge dissection was identified. Final angiogram was performed and showed a good angiographic results and the procedure was completed was no complication Postprocedure Management: 1. Continue dual antiplatelet therapy for at least a year. The patient was not on Effient. I loaded her with Effient again 2. Aggressive cholesterol control 3. Risk factors modification
--- NOTE | 2023-09-29 18:12 | P.PN ---
Subjective Progress Note Date: 09/29/23 Pt doing well following her staged LHC with stenting of RCA. Gen: awake, alert HEENT: normocephalic, atraumatic, good hearing acuity, moist mucous membranes Resp: good air exchange, breathing comfortably with no accessory muscle use CVS: good distal perfusion x 4, GI: soft, NTTP, ND : no SPT, no CVAT, oneill catheter not present MSK: no pitting edema, no clubbing Neuro: non-focal, moving all extremities Psych: cooperative, euthymic mood Hospital course: Patient is a 62-year-old female with a PMH of tobacco abuse and obesity who had initially presented to [facility] with complaints of chest discomfort. At [facility], the patient's troponin was elevated at 1.50 with a somewhat abnormal EKG. The patient was started on heparin infusion and was transferred for cardiology evaluation. Upon arrival at the emergency room, EKG revealed findings consistent with ST elevation MS for which a code STEMI was activated. Patient was taken to the Electrical Maintenance Technician where she under went stenting of the OM1. Patient was also noted to have 60-70% consultation disease of the distal LAD as well as 90-95% of the proximal RCA. The patient was seen postoperatively in the medical ICU. She reported that her chest pain had resolved completely. She denied any additional complaints. Denied experiencing cough, fever, sore throat, nausea, vomiting. Laboratory evaluation at our facility revealed leukocytosis of 15.4, hemoglobin 16.7, troponin I 9.330, glucose 113, AST 116, and ALT 37. EKG had revealed sinus bradycardia with ST elevations in inferior leads and poor R-wave progression 57 bpm as reviewed by me. Assessment: ST elevation MS status post stenting of OM1 Leukocytosis, suspect secondary to acute stressor with no signs of active infection at this time Transaminitis, unclear etiology Plan: Cardiology recommendations appreciated Continue patient on aspirin and Effient with Lipitor Cardiac monitoring Follow up echocardiogram Follow-up lipid panel and A1c If transaminitis persistent, consider RUQ ultrasound DVT prophylaxis: Lovenox Subq The patient is admitted with an anticipated greater than 2 midnight stay for evaluation of STEMI CODE STATUS: Full Code Discussed with: Patient Anticipated discharge place: Home Objective - Vital Signs Vital signs: Vital Signs Temp 98.8 F 09/29/23 04:00 Pulse 93 09/29/23 17:00 Resp 5 L 12/22/23 17:00 BP 119/101 09/29/23 17:00 Pulse Ox 96 09/29/23 17:00 FiO2 Intake & Output 09/28/23 09/29/23 09/29/23 18:59 06:59 18:59 Intake Total 450 621.00 2601.25 Output Total 1450 1200 0 Balance -1000 -579.00 2601.25 Weight 95.254 kg 94.7 kg Intake: IV 450 381.00 1101.25 Sodium Chloride 0.9% 1, 381.00 1001.25 000 ml In Empty Bag 1 bag @ 1 ML/KG/HR 95.254 mls/ hr IV .[id number] ANISH Rx#: [id number] Sodium Chloride 0.9% 1, 450 000 ml In Empty Bag 1 bag @ 75 mls/hr IV .[id number] ANISH Rx#:[id number] Oral 240 1500 Output: Urine 1450 1200 0 Other: Voiding Method Bedside Commode Bedside Commode Bedside Commode # Voids 1 - Labs CBC & Chem 7: 09/29/23 04:40 09/29/23 04:40 Labs: Abnormal Lab Results - Last 24 Hours (Table) 09/29/23 09/29/23 Range/Units 04:40 04:40 WBC 11.2 H (3.8-10.6) k/uL Chloride 108 H (98-107) mmol/L Glucose 101 H (74-99) mg/dL
[2023-09-29] MEDS: ATORVASTATIN 80 MG TAB PO SCH (20:03)
[2023-09-30 04:23] LABS: Basophils # (A) 0.1 k/uL (0-0.2); Basophils % (A) 1 %; Eosinophils # (A) 0.4 k/uL (0-0.7); Eosinophils % (A) 4 %; HCT 45.5 % (34.0-46.0); HGB 15.3 gm/dL (11.4-16.0); Lymphocytes # (A) 4.5 k/uL (1.0-4.8); Lymphocytes % (A) 40 %; MCH 31.4 pg (25.0-35.0); MCHC 33.7 g/dL (31.0-37.0); Mean Platelet Volume 9.6; Monocytes # (A) 0.7 k/uL (0-1.0); Monocytes % (A) 6 %; Neutrophils # (A) 5.4 k/uL (1.3-7.7); Neutrophils % (A) 47 %; Platelet Count 251 k/uL (150-450); RBC 4.89 m/uL (3.80-5.40); RDW 13.3 % (11.5-15.5); WBC 11.4 k/uL (3.8-10.6)
[2023-09-30 05:25] LABS: African American GFR (CKD) 65 (>60 ml/min/1.73 sqM); Anion Gap 7 mmol/L; Blood Urea Nitrogen 20 mg/dL (7-17); Calcium 9.1 mg/dL (8.4-10.2); Carbon Dioxide 25 mmol/L (22-30); Chloride 106 mmol/L (98-107); Glucose 100 mg/dL (74-99); Non-African American GFR(CKD) 56 (>60 ml/min/1.73 sqM); Potassium 4.3 mmol/L (3.5-5.1); Sodium 138 mmol/L (137-145)
--- NOTE | 2023-09-30 07:44 | PN ---
PROGRESS NOTE SUBJECTIVE: Mrs. Andujar is in sinus rhythm, doing well. She underwent stenting of right coronary artery uneventfully, doing well. Right radial site is clean and dry. OBJECTIVE: VITAL SIGNS: Vitals are stable. NECK: No JVD. HEART: S1, S2 heard normally. LUNGS: Clear. ABDOMEN: Unchanged. EXTREMITIES: Lower extremity exam unchanged. PLAN: She can be discharged tomorrow and follow up with Dr. Baires in about 7 to 10 days. MMODL / IJN: [id number] /
[2023-09-30] MEDS ORDERED: PRASUGREL 10 MG TAB PO SCH (09:00)
[2023-09-30] MEDS: ENOXAPARIN 40 MG/0.4 ML SYRINGE SQ SCH (10:08)
[2023-09-30] MEDS: ASPIRIN 81 MG PO SCH (10:08)
[2023-09-30] MEDS: METOPROLOL TARTRATE 25 MG TAB PO SCH (10:08)
[2023-09-30 10:20] VITALS: PULSE 72
--- NOTE | 2023-09-30 11:20 | P.DS ---
Providers Date of admission: 09/27/23 23:37 Expected date of discharge: 09/30/23 Attending physician: Mayelin Winslow MD Consults: 09/27/23 23:36 Consult Physician Routine Consulting Provider: Des Walter Consult Reason/Comments: stemi Do you want consulting provider notified?: Already Contacted 09/28/23 00:51 Consult Physician Routine Consulting Provider: Efrain Arauz Consult Reason/Comments: Post Interventional patient Do you want consulting provider notified?: Already Contacted 09/29/23 10:33 Consult Physician Routine Consulting Provider: Efrain Arauz Consult Reason/Comments: Post Interventional patient Do you want consulting provider notified?: Already Contacted Primary care physician: Stated None Hospital Course: ST elevation WA status post stenting of OM1 Leukocytosis, suspect secondary to acute stressor with no signs of active infection at this time Transaminitis, unclear etiology Hospital course: Patient is a 62-year-old female with a PMH of tobacco abuse and obesity who had initially presented to [facility] with complaints of chest discomfort. At [facility], the patient's troponin was elevated at 1.50 with a somewhat abnormal EKG. The patient was started on heparin infusion and was transferred for cardiology evaluation. Upon arrival at the emergency room, EKG revealed findings consistent with ST elevation WA for which a code STEMI was activated. Patient was taken to the Residential Program Coordinator where she underwent stenting of the OM1. Patient was also noted to have 60-70% consultation disease of the distal LAD as well as 90-95% of the proximal RCA. The patient was seen postoperatively in the medical ICU. She reported that her chest pain had resolved completely. She denied any additional complaints. Denied experiencing cough, fever, sore throat, nausea, vomiting. Laboratory evaluation at our facility revealed leukocytosis of 15.4, hemoglobin 16.7, troponin I 9.330, glucose 113, AST 116, and ALT 37. EKG had revealed sinus bradycardia with ST elevations in inferior leads and poor R-wave progression 57 bpm as reviewed by me. Pt evaluated again by cardiology and determined that she should have a staged stenting procedure of her RCA which was completed on 09/29. Pt again did well following the procedure and had no further complaints of chest pain, palps, dyspnea. Echo showed lateral wall hypokinesis, but with preserved EF of 50-55%. Pt was discharged home with ASA, brillinta, atorvastatin, metoprolol, and will f/u with PCP, cardiology as an outpatient. I spent 35 minutes coordinating this discharge on 09/30 Gen: awake, alert HEENT: normocephalic, atraumatic, good hearing acuity, moist mucous membranes Resp: good air exchange, breathing comfortably with no accessory muscle use CVS: good distal perfusion x 4, GI: soft, NTTP, ND : no SPT, no CVAT, oneill catheter not present MSK: no pitting edema, no clubbing Neuro: non-focal, moving all extremities Psych: cooperative, euthymic mood Patient Condition at Discharge: Good Plan - Discharge Summary New Discharge Prescriptions: New Prasugrel [Effient] 10 mg PO DAILY #30 tab Metoprolol Tartrate [Lopressor] 25 mg PO BID #60 tab Aspirin 81 mg PO DAILY #30 tab Atorvastatin [Lipitor] 80 mg PO HS #30 tab Discharge Medication List Aspirin 81 mg PO DAILY #30 tab 09/30/23 [Rx] Atorvastatin [Lipitor] 80 mg PO HS #30 tab 09/30/23 [Rx] Metoprolol Tartrate [Lopressor] 25 mg PO BID #60 tab 09/30/23 [Rx] Prasugrel [Effient] 10 mg PO DAILY #30 tab 09/30/23 [Rx] Follow up Appointment(s)/Referral(s): None,Stated [Primary Care Provider] - 1-2 days Discharge/Stand Alone Forms: Area PCPs Discharge Disposition: HOME SELF-CARE
[2023-09-30 12:35] VITALS: BP 130/80; RESP 12; TEMP 98.2
--- NOTE | 2023-09-30 13:49 | P.PN ---
Subjective Progress Note Date: 09/30/23 The patient is a 62-year-old female who is currently medically to the hospital with an ST elevated myocardial infarction. She was found to have multivessel disease and ultimately underwent stenting of the RCA. Residual lesion in the mid LAD. Patient is resting comfortably sitting in the recliner chair. She states she has been up ambulating the unit. She denies any chest pain or chest pressure. No difficulty breathing GENERAL: Well-appearing, well-nourished and in no acute distress. NECK: Supple without JVD or thyromegaly. LUNGS: Breath sounds diminished to auscultation bilaterally. Respiration equal and unlabored. No wheezes, rales or rhonchi. HEART: Regular rate and rhythm without murmurs, rubs or gallops. S1 and S2 heard. EXTREMITIES: Normal range of motion, no edema. No clubbing or cyanosis. Peripheral pulses intact and strong. Right radial site is healed. TELEMETRY: Sinus rhythm overnight IMPRESSION: ST elevated myocardial infarction Inferior wall myocardial infarction Dyslipidemia PLAN: Continue current medication regimen including dual antiplatelet therapy May be discharged from the cardiac standpoint Follow-up with primary wood heel flap trimmer Dr. Walter in one week I am dictating on behalf of Dr Geoff Muelelr's history/physical and assessment/plan. Objective - Vital Signs Vital signs: Vital Signs Temp 98.2 F 09/30/23 12:00 Pulse 72 09/30/23 12:00 Resp 12 09/30/23 12:00 BP 130/80 09/30/23 12:00 Pulse Ox 97 09/30/23 12:00 FiO2 Intake & Output 09/29/23 09/30/23 09/30/23 18:59 06:59 18:59 Intake Total 2676.25 290 480 Output Total 0 0 801 Balance 2676.25 290 -321 Weight 95.8 kg Intake: IV 1176.25 Sodium Chloride 0.9% 1, 1076.25 000 ml In Empty Bag 1 bag @ 1 ML/KG/HR 95.254 mls/ hr IV .[id number] ANISH Rx#: [id number] Oral 1500 290 480 Output: Urine 0 0 800 Stool 1 Other: Voiding Method Bedside Commode Toilet Toilet # Voids 1 1 # Bowel Movements 1 - Labs CBC & Chem 7: 09/30/23 04:09 09/30/23 04:09 Labs: Abnormal Lab Results - Last 24 Hours (Table) 09/30/23 09/30/23 Range/Units 04:09 04:09 WBC 11.4 H (3.8-10.6) k/uL BUN 20 H (7-17) mg/dL Creatinine 1.08 H (0.52-1.04) mg/dL Glucose 100 H (74-99) mg/dL
== END 2023-09-30 15:31 | disposition home or self-care (01) | DRG 322 ==
LOC: EC 22:35 → 2SICU 23:37
PROVIDERS: ADMIT Internal Medicine; ATTEND Internal Medicine
PROC: B2111ZZ Fluoroscopy of Multiple Coronary Arteries using Low Osmolar Contrast (ICD-10-PCS; 2023-09-28)
PROC: 4A023N7 Measurement of Cardiac Sampling and Pressure, Left Heart, Percutaneous Approach (ICD-10-PCS; 2023-09-28)
PROC: 027034Z Dilation of Coronary Artery, One Artery with Drug-eluting Intraluminal Device, Percutaneous Approach (ICD-10-PCS; principal; 2023-09-29 10:30)
PROC: B240ZZ3 Ultrasonography of Single Coronary Artery, Intravascular (ICD-10-PCS; principal; 2023-09-29 10:30)
DX: I21.19 ST elevation (STEMI) myocardial infarction involving other coronary artery of inferior wall (principal); I25.10 Atherosclerotic heart disease of native coronary artery without angina pectoris; F17.210 Nicotine dependence, cigarettes, uncomplicated; F32.A Depression, unspecified; F41.9 Anxiety disorder, unspecified; I10 Essential (primary) hypertension; E66.9 Obesity, unspecified; I25.110 Atherosclerotic heart disease of native coronary artery with unstable angina pectoris; R00.1 Bradycardia, unspecified; K21.9 Gastro-esophageal reflux disease without esophagitis; Z82.49 Family history of ischemic heart disease and other diseases of the circulatory system; Z71.3 Dietary counseling and surveillance; R74.01 Elevation of levels of liver transaminase levels; Z28.21 Immunization not carried out because of patient refusal; Z91.030 Bee allergy status; Z68.34 Body mass index [BMI] 34.0-34.9, adult
CPT/HCPCS: 36415; 71045; 76937; 80048; 80053; 80061; 83036; 83735; 84443; 84484; 85025; 85610; 85730; 92978; 93005; 93306; 93458; 96365; 96368; 99291